=== PATIENT | male | born 1950 | race Two or more races ===

== ENCOUNTER 2017-11-28 12:08 | Emergency (ER) | payer OTHER ==
[~2017-11-28] VITALS: Ht 172.7 cm; Wt 72.6 kg
[2017-11-28 12:30] VITALS: BP 152/88
[2017-11-28] MEDS ORDERED: Norco 5mg/325mg tab ORAL ONE (12:30)
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
[2017-11-28] MEDS ORDERED: Bacitracin Oint UD TOPIC ONE (14:45)
[2017-11-28] MEDS ORDERED: NORCO 5-325 TA1 EACH ORAL (15:00)
[2017-11-28] MEDS ORDERED: BACITRACIN-P28.35 GM TP (15:00)
[2017-11-28 15:20] VITALS: BP 152/88
== END 2017-11-28 15:20 | disposition home or self-care (01) ==
LOC: EDBD 12:08 → EMR 13:10
DX: S02.2XXA Fracture of nasal bones, initial encounter for closed fracture (principal); S09.90XA Unspecified injury of head, initial encounter; Y00.XXXA Assault by blunt object, initial encounter; Y07.9 Unspecified perpetrator of maltreatment and neglect; Y93.9 Activity, unspecified; Y92.9 Unspecified place or not applicable
CPT/HCPCS: 70450; 70486; 99284